=== PATIENT | female | born 1990 | race Caucasian/White ===

== ENCOUNTER 2021-07-08 11:17 | Emergency (ER) | payer BC ==
[2021-07-08] MEDS ORDERED: ONDANSETRON 4 MG/2 ML VIAL ONE (11:54)
[2021-07-08] MEDS ORDERED: NA CHLORIDE 0.9% 1,000 ML ONE (11:54)
[2021-07-08 12:05] LABS: Absolute Lymphocytes (CBC) 0.9 K/uL (0.7-4.9); Hematocrit 42.9 % (36.0-45.0); Lymphocytes % 29.5 % (15.3-44.8); RBC Red Blood Cell Count 4.82 M/uL (3.86-4.86)
[2021-07-08 12:24] LABS: Albumin 3.9 g/dL (3.4-5.0); Bilirubin Direct 0.3 mg/dL (0-0.2); Bilirubin Total 1.1 mg/dL (0.2-1.0); Potassium 3.9 mmol/L (3.5-5.1); Protein, Total 7.3 g/dL (6.4-8.2)
--- NOTE | 2021-07-08 14:47 | EDPHYS ---
Physician Documentation [facility] Name: Lizbeth Aguirre Age: 30 yrs Sex: Female : 1990 Arrival Date: 07/08/2021 Time: 11:23 Bed 25 Private MD: ED Physician Koko Starr HPI: 07/08 11:35 This 30 yrs old Female presents to ER via Ambulatory with complaints of Nausea/Vomiting.jmm 11:35 The patient presents to the emergency department with nausea, vomiting, diarrhea. jmm Onset: The symptoms/episode began/occurred gradually, 3 day(s) ago. Possible causes: unknown. The symptoms are aggravated by nothing. The symptoms are alleviated by nothing. 11:35 Associated signs and symptoms: Pertinent positives: diarrhea. jmm 11:35 The patient has not experienced similar symptoms in the past. jmm Historical: - Allergies: 11:30 No Known Allergies; ll1 - PMHx: 11:30 None; ll1 - PSHx: 11:30 None; ll1 - Immunization history:: Client reports having NOT received the Covid vaccine. - Social history:: Smoking status: Patient denies any tobacco usage or history of. ROS: 11:35 Constitutional: Negative for fever, chills, and weight loss, Cardiovascular: Negative jm for chest pain, palpitations, and edema, Respiratory: Negative for shortness of breath, cough, wheezing, and pleuritic chest pain. 11:35 Abdomen/GI: Positive for abdominal pain, nausea and vomiting, vomiting. 11:35 All other systems are negative. Exam: 11:35 Constitutional: This is a well developed, well nourished patient who is awake, alert, jmm and in no acute distress. Head/Face: atraumatic. Eyes: EOMI, no conjunctival erythema appreciated ENT: Moist Mucus Membranes Neck: Trachea midline, Supple Chest/axilla: Normal chest wall appearance and motion. Cardiovascular: Regular rate and rhythm. No edema appreciated Respiratory: Normal respirations, no respiratory distress appreciated Abdomen/GI: Non distended, soft 11:35 Skin: General appearance color normal MS/ Extremity: Moves all extremities, no obvious deformities appreciated, no edema noted to the lower extremities Neuro: Awake and alert Psych: Behavior is normal, Mood is normal, Patient is cooperative and pleasant 11:35 Abdomen/GI: Inspection: abdomen appears normal, Bowel sounds: normal, Palpation: abdomen is soft and non-tender, in all quadrants. Vital Signs: 11:30 BP 130 / 79; Pulse 82; Resp 17; Temp 99.0; Pulse Ox 99% on R/A; Weight 113.4 kg; Height ll1 5 ft. 10 in. (177.80 cm); Pain 0/10; 12:44 BP 118 / 96; Pulse 66; Resp 16; Pulse Ox 100% on R/A; Pain 0/10; ab2 13:18 BP 123 / 74; Pulse 75; Resp 16; Pulse Ox 98% on R/A; ab2 14:47 BP 114 / 77; Pulse 64; Resp 16; Pulse Ox 99% on R/A; ab2 11:30 Body Mass Index 35.87 (113.40 kg, 177.80 cm) ll1 MDM: 11:35 Patient medically screened. el 14:45 Data reviewed: vital signs, nurses notes. Counseling: I had a detailed discussion with jenny the patient and/or guardian regarding: the historical points, exam findings, and any diagnostic results supporting the discharge/admit diagnosis, lab results, radiology results, the need for outpatient follow up, to return to the emergency department if symptoms worsen or persist or if there are any questions or concerns that arise at home. ED course: Patient is alert nontoxic in appearance in the ED. No abdominal pain on physical exam. I do not currently suspect acute intra-abdominal process. Patient advised to follow-up PCP and otherwise given strict return precautions. Patient understood agrees plan of care. 07/08 11:49 Order name: Basic Metabolic Panel; Complete Time: 13:02 [facility] 07/08 11:49 Order name: CBC with Diff; Complete Time: 12:17 [facility] 07/08 11:49 Order name: Hepatic Function; Complete Time: 13:02 [facility] 07/08 11:49 Order name: Lipase; Complete Time: 13:02 [facility] 07/08 11:49 Order name: IV Saline Lock; Complete Time: 12:07 [facility] 07/08 11:49 Order name: Labs collected and sent; Complete Time: 12:07 [facility] Administered Medications: 12:09 Drug: NS 0.9% 1000 ml Route: IV; Rate: 1 bolus; Site: right antecubital; ab2 14:47 Follow up: Response: No adverse reaction; IV Status: Completed infusion ab2 12:09 Drug: Zofran (Ondansetron) 4 mg Route: IVP; Site: right antecubital; ab2 14:47 Follow up: Response: No adverse reaction ab2 Disposition Summary: 07/08/21 14:47 Discharge Ordered Location: Home [facility] Condition: Stable [facility] Diagnosis - Vomiting m - Diarrhea, unspecified jm Followup: [facility] - With: Private Physician - When: 2 - 3 days - Reason: Recheck today's complaints, Continuance of care, Re-evaluation by your physician Discharge Instructions: - Discharge Summary Sheet [facility] - Food Choices to Help Relieve Diarrhea, Adult jm - Vomiting, Adult [facility] Forms: - Medication Reconciliation Form [facility] - Thank You Letter [facility] - Antibiotic Education [facility] - Prescription Opioid Use [facility] Prescriptions: - ondansetron 4 mg Oral tablet,disintegrating - place 1 tablet by TRANSLINGUAL route 4 times per day; 30 tablet; Refills: 0, [facility] Product Selection Permitted - dicyclomine 20 mg Oral Tablet - take 1 tablet by ORAL route 4 times per day; 30 tablet; Refills: 0, Product [facility] Selection Permitted - Lomotil 2.5-0.025 mg Oral Tablet - take 1 tablet by ORAL route every 6 hours As needed; 12 tablet; Refills: 0, [facility] Product Selection Permitted Signatures: Dispatcher [employer] Koko Garrett MD MD cha Mickail, Joel, PA PA jmm Lewis, Lynsay, RN RN ll1 Mathew Koo ab2
--- NOTE | 2021-07-08 14:47 | ER ---
Nurse's Notes [facility] Name: Lizbeth Aguirre Age: 30 yrs Sex: Female : 1990 Arrival Date: 07/08/2021 Time: 11:23 Bed 25 Private MD: Diagnosis: Vomiting;Diarrhea, unspecified Presentation: 07/08 11:30 Chief complaint: Patient states: Diarrhea since Monday. N/V started last night. No ll1 known fever. Coronavirus screen: Vaccine status: Patient reports being unvaccinated. Client denies travel out of the [place] in the last 14 days. diarrhea, fatigue, nausea, vomiting. Client presents with at least one sign or symptom that may indicate coronavirus-19. Standard/surgical mask placed on the client. Ebola Screen: Patient denies travel to an Ebola-affected area in the 21 days before illness onset. Initial Sepsis Screen: Does the patient meet any 2 criteria? No. Patient's initial sepsis screen is negative. Does the patient have a suspected source of infection? Yes: Acute abdominal pain. Risk Assessment: Do you want to hurt yourself or someone else? Patient reports no desire to harm self or others. Onset of symptoms was July 02, 2021. 11:30 Method Of Arrival: Ambulatory ll1 11:30 Acuity: TRA 3 ll1 Triage Assessment: 11:32 General: Appears in no apparent distress. Behavior is calm, cooperative, appropriate ll1 for age. Pain: Denies pain. GI: Reports diarrhea, nausea, vomiting. 11:32 : Reports dark yellow urine. ll1 Historical: - Allergies: 11:30 No Known Allergies; ll1 - PMHx: 11:30 None; ll1 - PSHx: 11:30 None; ll1 - Immunization history:: Client reports having NOT received the Covid vaccine. - Social history:: Smoking status: Patient denies any tobacco usage or history of. Screenin:50 Abuse screen: Denies threats or abuse. Denies injuries from another. Nutritional ab2 screening: No deficits noted. Tuberculosis screening: No symptoms or risk factors identified. Fall Risk None identified. Assessment: 11:48 General: Appears in no apparent distress. comfortable, Behavior is calm, cooperative, ab2 appropriate for age. Pain: Denies pain. Neuro: Level of Consciousness is awake, alert, obeys commands, Oriented to person, place, time, situation, Appropriate for age Beater Room Helper are equal bilaterally Moves all extremities. Gait is steady, Speech is normal. Cardiovascular: No deficits noted. Denies chest pain, shortness of breath, Heart tones S1 S2 present. Respiratory: Airway is patent Respiratory effort is even, unlabored, Respiratory pattern is regular, symmetrical, Breath sounds are clear. GI: Abdomen is round non-distended, Bowel sounds present X 4 quads. Reports diarrhea, intolerance of fluids, intolerance of food, nausea, vomiting. : No deficits noted. No signs and/or symptoms were reported regarding the genitourinary system. EENT: No deficits noted. No signs and/or symptoms were reported regarding the EENT system. Derm: No deficits noted. No signs and/or symptoms reported regarding the dermatologic system. Skin is intact, Skin is dry, Skin is pink, warm \T\ dry. 13:00 Reassessment: Patient appears in no apparent distress at this time. Awaiting results ab2 for disposition, pt denies any needs at this time. 14:46 Reassessment: Awaiting disposition. Denies any needs. ab2 Vital Signs: 11:30 BP 130 / 79; Pulse 82; Resp 17; Temp 99.0; Pulse Ox 99% on R/A; Weight 113.4 kg; Height ll1 5 ft. 10 in. (177.80 cm); Pain 0/10; 12:44 BP 118 / 96; Pulse 66; Resp 16; Pulse Ox 100% on R/A; Pain 0/10; ab2 13:18 BP 123 / 74; Pulse 75; Resp 16; Pulse Ox 98% on R/A; ab2 14:47 BP 114 / 77; Pulse 64; Resp 16; Pulse Ox 99% on R/A; ab2 11:30 Body Mass Index 35.87 (113.40 kg, 177.80 cm) ll1 ED Course: 11:23 Patient arrived in ED. karin 11:24 Ernie Paul PA is PHCP. brennan 11:25 Koko Starr MD is Attending Physician. brennan 11:25 Mathew Koo is Primary Nurse. ab2 11:30 Arm band placed on Patient placed in an exam room, on a stretcher. ll1 11:32 Triage completed. ll1 11:50 Patient has correct armband on for positive identification. Bed in low position. Call ab2 light in reach. Side rails up X2. 11:50 No provider procedures requiring assistance completed. ab2 12:07 Inserted saline lock: 20 gauge in right antecubital area, using aseptic technique. tp1 Blood collected. 15:03 IV discontinued, intact, bleeding controlled, No redness/swelling at site. Pressure ab2 dressing applied. Administered Medications: 12:09 Drug: NS 0.9% 1000 ml Route: IV; Rate: 1 bolus; Site: right antecubital; ab2 14:47 Follow up: Response: No adverse reaction; IV Status: Completed infusion ab2 12:09 Drug: Zofran (Ondansetron) 4 mg Route: IVP; Site: right antecubital; ab2 14:47 Follow up: Response: No adverse reaction ab2 Outcome: 14:47 Discharge ordered by . brennan 15:03 Discharged to home ambulatory. ab2 15:03 Condition: good 15:03 Discharge instructions given to patient, Instructed on discharge instructions, follow up and referral plans. medication usage, Demonstrated understanding of instructions, follow-up care, medications, Prescriptions given X 3. 15:04 Patient left the ED. ab2 Signatures: Ernie Paul PA PA jmm Lewis, Lynsay, RN RN [email or web address] Elida Richards tp1 Mathew Koo ab2 Viviana Palomo
[2021-07-08 15:44] VITALS: TEMP 99
[2021-07-08 15:51] VITALS: BP 114/77; O2SAT 99
== END 2021-07-08 15:04 | disposition home or self-care (01) ==
LOC: ER 11:17
DX: R19.7 Diarrhea, unspecified (principal)
CPT/HCPCS: 96361; 85025; 80048; 36415; 80076; 83690; 96374; 99284; J7030; J2405